=== PATIENT | male | born 1940 | race Caucasian/White ===

== ENCOUNTER 2018-05-22 14:04 | Inpatient (IN) | payer MEDICARE, OTHER ==
[~2018-05-22] VITALS: Ht 188 cm; Wt 147.0 kg
[2018-05-22] MEDS ORDERED: acetaminophen 325mg tablet PO ONE (14:10)
[2018-05-22] MEDS ORDERED: ondansetron/PF 4mg/2ml inj IV ONE (15:00)
[2018-05-22] MEDS ORDERED: normal saline 1000ml 1,000 ML IV ONE (15:00)
[2018-05-22] MEDS ORDERED: morphine 4 MG/ML inj SYRINge IV ONE (15:00)
[2018-05-22 15:37] LABS: BASOPHILS # (AUTO) 0.1 X10'3 (0-0.2); BASOPHILS % (AUTO) 0.6 % (0-1); EOSINOPHILS # (AUTO) 0.1 X10'3 (0-0.9); EOSINOPHILS % (AUTO) 1.4 % (0-6); HEMATOCRIT 41.5 % (42.0-52.0); LYMPHOCYTES # (AUTO) 0.9 X10'3 (1.1-4.8); LYMPHOCYTES % (AUTO) 10.1 % (21-51); MEAN CORPUSCULAR HEMOGLOBIN 30.6 PG (27.0-31.0); MEAN CORPUSCULAR HGB CONC 33.7 % (33.0-36.5); MEAN CORPUSCULAR VOLUME 90.9 FL (78-98); MEAN PLATELET VOLUME 8.2 FL (7.4-10.4); MONOCYTES # (AUTO) 0.3 X10'3 (0-0.9); MONOCYTES % (AUTO) 3.5 % (2-12); NEUTROPHILS % (AUTO) 84.4 % (42-75); PLATELET COUNT 165 X10'3 (140-440); RED BLOOD COUNT 4.57 X10'6 (4.70-6.10); RED CELL DISTRIBUTION WIDTH 13.8 % (11.5-14.5); WHITE BLOOD COUNT 9.4 X10'3 (4.5-11.0)
[2018-05-22 15:41] LABS: INR 1.1 INR; PARTIAL THROMBOPLASTIN TIME 24 SECONDS (22-32)
[2018-05-22 15:46] LABS: ALANINE AMINOTRANSFERASE 26 U/L (12-78); ALBUMIN 3.7 G/DL (3.4-5.0); ALBUMIN/GLOBULIN RATIO 0.9 (1.1-1.5); ALKALINE PHOSPHATASE 98 IU/L (46-116); ANION GAP 9 (8-16); BILIRUBIN,TOTAL 0.8 MG/DL (0.1-1.0); BLOOD UREA NITROGEN 19 MG/DL (7-18); BUN/CREATININE RATIO 10.9 (5.4-32.0); CALCIUM 9.6 MG/DL (8.5-10.1); CHLORIDE 104 MMOL/L (99-107); CREATININE 1.75 MG/DL (0.60-1.10); GLUCOSE 74 MG/DL (70-104); SODIUM 145 MMOL/L (135-145); TOTAL CARBON DIOXIDE 32.3 MMOL/L (24-32); TOTAL PROTEIN 7.6 G/DL (6.4-8.2); eGFR 38 ML/MIN
[2018-05-22 15:48] LABS: ASPARTATE AMINO TRANSFERASE 31 U/L (10-37); POTASSIUM 4.2 MMOL/L (3.5-5.1)
[2018-05-22] MEDS ORDERED: morphine 4 MG/ML inj SYRINge IM ONE (16:20)
[2018-05-22] MEDS ORDERED: HYDR28CR14 TOP (17:05)
[2018-05-22] MEDS ORDERED: KEN0.1O TP (17:05)
[2018-05-22] MEDS ORDERED: OXCA150T53 PO (17:05)
[2018-05-22] MEDS ORDERED: OXCA300T52 PO (17:05)
[2018-05-22] MEDS ORDERED: INSU100I29 SQ (17:05)
[2018-05-22] MEDS ORDERED: DILT120C62 PO (17:05)
[2018-05-22] MEDS ORDERED: CARV3.122 PO (17:05)
[2018-05-22] MEDS ORDERED: APIX5TAB3 PO (17:05)
[2018-05-22] MEDS ORDERED: LEVO112T5 PO (17:05)
[2018-05-22] MEDS ORDERED: POTA20TA19 PO (17:05)
[2018-05-22] MEDS ORDERED: OMEG1CAP46 PO (17:05)
[2018-05-22] MEDS ORDERED: FURO80TA87 PO (17:05)
[2018-05-22] MEDS ORDERED: OMEP20TA5 PO (17:05)
[2018-05-22] MEDS ORDERED: INSU100C4 SQ (17:05)
[2018-05-22] MEDS ORDERED: LIRA0.6P2 SUBCUT (17:05)
[2018-05-22] MEDS ORDERED: ATOR80TA PO (17:05)
[2018-05-22] MEDS ORDERED: normal saline 1000ml 1,000 ML IV SCH (17:56)
[2018-05-22] MEDS ORDERED: insulin Lispro (HumaLOG) vial - multi-dose SQ SCH (18:00)
[2018-05-22] MEDS ORDERED: potassium Cl 40MEQ/NS 500ml 500 ML IV PRN ×2 (18:00)
[2018-05-22] MEDS ORDERED: dextrose 50%-water 50ml dispensing syringe IV PRN ×2 (18:00)
[2018-05-22] MEDS ORDERED: MESSAGE TO PHARMACY PO ONE (18:00)
[2018-05-22] MEDS ORDERED: magnesium 1gm/100ml D5W IVPB 100 ML IV PRN (18:00)
[2018-05-22] MEDS ORDERED: dextrose ORAL solution 15 GM/59 ML bottle PO PRN ×2 (18:00)
[2018-05-22] MEDS ORDERED: bisacodyl 10mg suppository rectal RC PRN (18:00)
[2018-05-22] MEDS ORDERED: ipratropium/albuterol 3ml nebule NEB PRN (18:00)
[2018-05-22] MEDS ORDERED: mag hydrox/Alum hydrox/simeth 30ml oral suspension PO PRN (18:00)
[2018-05-22] MEDS ORDERED: acetaminophen 325mg tablet PO PRN (18:00)
[2018-05-22] MEDS ORDERED: morphine 2 MG/ML inj. syringe IV PRN (18:00)
[2018-05-22] MEDS ORDERED: magnesium 4gm in 100ml NS 100 ML IV PRN (18:00)
[2018-05-22] MEDS ORDERED: glucagon, human recombinant 1mg kit SUBCUT PRN (18:00)
[2018-05-22] MEDS ORDERED: ondansetron/PF 4mg/2ml inj IV PRN (18:00)
[2018-05-22] MEDS ORDERED: potassium Cl 20 mEq SR tablet PO PRN ×2 (18:00)
[2018-05-22 18:48] LABS: HEMOGLOBIN A1C 5.5 % (4.5-6.2)
[2018-05-22 19:37] LABS: CLARITY,URINE CLEAR (Clear); COLOR,URINE YELLOW (Yellow); GLUCOSE, URINE NEGATIVE (Neg); KETONES,URINE NEGATIVE (Neg); LEUKOCYTE ESTERASE ,URINE NEGATIVE (Neg); NITRITES, URINE NEGATIVE (Neg); OCCULT BLOOD,URINE NEGATIVE (Neg); PH,URINE 6.5 (4.8-8.0); PROTEIN,URINE NEGATIVE (Neg); UA COLLECTION TYPE FOLEY CATH; UROBILINOGEN,URINE 0.2 E.U/dL (0.2-1.0)
[2018-05-22 20:00] VITALS: BP 121/61
[2018-05-22] MEDS ORDERED: oxcarbazepine 150mg tablet PO SCH (20:00)
[2018-05-22] MEDS: OMEGA-3/DHA/EPA/FISH OIL 1 EACH CAPSULE.DR PO SCH (20:00)
[2018-05-22] MEDS: insulin glargine (Lantus) pen - multi-dose SQ SCH (21:00)
[2018-05-22] MEDS: oxcarbazepine 150mg tablet PO SCH (21:00)
[2018-05-22] MEDS: carVEDilol 3.125mg tablet PO SCH (22:28)
[2018-05-22] MEDS: atorvastatin 20mg tablet PO SCH (22:29)
[2018-05-22] MEDS: potassium Cl 20 mEq SR tablet PO SCH (22:29)
[2018-05-22] MEDS: morphine 2 MG/ML inj. syringe IV PRN (22:31)
[2018-05-22 23:00] VITALS: BP 147/67
[2018-05-23 03:00] VITALS: BP 128/74
[2018-05-23] MEDS: morphine 2 MG/ML inj. syringe IV PRN ×3 (04:29→16:14)
[2018-05-23 05:28] LABS: BASOPHILS # (AUTO) 0.1 X10'3 (0-0.2); BASOPHILS % (AUTO) 0.5 % (0-1); EOSINOPHILS # (AUTO) 0.2 X10'3 (0-0.9); EOSINOPHILS % (AUTO) 1.5 % (0-6); HEMOGLOBIN 12.7 g/dl (14.0-17.9); LYMPHOCYTES # (AUTO) 0.9 X10'3 (1.1-4.8); LYMPHOCYTES % (AUTO) 8.1 % (21-51); MEAN CORPUSCULAR HEMOGLOBIN 31.5 PG (27.0-31.0); MEAN CORPUSCULAR HGB CONC 34.4 % (33.0-36.5); MEAN CORPUSCULAR VOLUME 91.5 FL (78-98); MEAN PLATELET VOLUME 8.5 FL (7.4-10.4); MONOCYTES # (AUTO) 0.4 X10'3 (0-0.9); MONOCYTES % (AUTO) 3.9 % (2-12); NEUTROPHILS # (AUTO) 8.9 X10'3 (1.8-7.7); PLATELET COUNT 146 X10'3 (140-440); RED BLOOD COUNT 4.04 X10'6 (4.70-6.10); RED CELL DISTRIBUTION WIDTH 13.4 % (11.5-14.5); WHITE BLOOD COUNT 10.6 X10'3 (4.5-11.0)
[2018-05-23 05:51] LABS: ALANINE AMINOTRANSFERASE 24 U/L (12-78); ALBUMIN 3.3 G/DL (3.4-5.0); ALKALINE PHOSPHATASE 86 IU/L (46-116); ANION GAP 9 (8-16); ASPARTATE AMINO TRANSFERASE 17 U/L (10-37); BILIRUBIN,TOTAL 1.2 MG/DL (0.1-1.0); BLOOD UREA NITROGEN 22 MG/DL (7-18); BUN/CREATININE RATIO 11.8 (5.4-32.0); CALCIUM 9.2 MG/DL (8.5-10.1); CHLORIDE 106 MMOL/L (99-107); CHOL/HDL RATIO 2.3 (0.00-4.99); CHOLESTEROL 118 MG/DL (0-200); CREATININE 1.86 MG/DL (0.60-1.10); GLUCOSE 128 MG/DL (70-104); HDL CHOLESTEROL 52 MG/DL (35-60); LDL CHOLESTEROL 63 MG/DL (50-100); MAGNESIUM 2.1 MG/DL (1.5-2.4); POTASSIUM 4.3 MMOL/L (3.5-5.1); SODIUM 146 MMOL/L (135-145); TOTAL CARBON DIOXIDE 31.5 MMOL/L (24-32); TOTAL PROTEIN 6.6 G/DL (6.4-8.2); TRIGLYCERIDES 61 MG/DL (20-135); eGFR 35 ML/MIN
[2018-05-23 06:00] VITALS: BP 114/62
[2018-05-23] MEDS ORDERED: non-formulary drug (Diltiazem HCl (Diltiazem 24Hr Cd) 1 CAP) PO SCH (08:00)
[2018-05-23] MEDS: K and/or MAG REPLACEMENT MC SCH (08:00)
[2018-05-23] MEDS: furosemide 10 MG/1 ML 10ml inj IV SCH (08:48)
[2018-05-23] MEDS: levoTHYROXINE 112mcg tablet PO SCH (08:48)
[2018-05-23] MEDS: OMEGA-3/DHA/EPA/FISH OIL 1 EACH CAPSULE.DR PO SCH ×2 (08:48→20:19)
[2018-05-23] MEDS: potassium Cl 20 mEq SR tablet PO SCH ×2 (08:48→20:19)
[2018-05-23] MEDS: diltiazem CD 120mg capsule (once-daily) PO SCH (08:49)
[2018-05-23] MEDS: pantoprazole 40mg Tablet.DR PO SCH (08:49)
[2018-05-23] MEDS: carVEDilol 3.125mg tablet PO SCH ×2 (08:49→20:19)
[2018-05-23] MEDS: oxcarbazepine 150mg tablet PO SCH ×2 (08:56→20:19)
[2018-05-23] MEDS: normal saline 1000ml 1,000 ML IV SCH ×2 (10:22→13:55)
[2018-05-23 11:00] VITALS: BP 104/56
[2018-05-23] MEDS: heparin, porcine 5000 units/ml vial SQ SCH (12:02)
[2018-05-23] MEDS ORDERED: HYDROcodone/acetaminophen 5mg/325mg tablet PO PRN (12:35)
[2018-05-23] MEDS: HYDROcodone/acetaminophen 10/325mg tab PO PRN ×2 (13:02→19:00)
[2018-05-23 15:00] VITALS: BP 119/53
[2018-05-23 19:00] VITALS: BP 110/56
[2018-05-23] MEDS: atorvastatin 20mg tablet PO SCH (20:19)
[2018-05-23] MEDS: insulin glargine (Lantus) pen - multi-dose SQ SCH (21:00)
[2018-05-23 23:00] VITALS: BP 134/61
[2018-05-23] MEDS: oxyCODONE/APAP 10/325mg tablet PO PRN (23:46)
[2018-05-24 05:00] VITALS: BP 133/71
[2018-05-24 05:50] LABS: BASOPHILS # (AUTO) 0.1 X10'3 (0-0.2); BASOPHILS % (AUTO) 0.6 % (0-1); EOSINOPHILS # (AUTO) 0.4 X10'3 (0-0.9); EOSINOPHILS % (AUTO) 4.6 % (0-6); HEMATOCRIT 32.5 % (42.0-52.0); HEMOGLOBIN 11.2 g/dl (14.0-17.9); LYMPHOCYTES # (AUTO) 0.9 X10'3 (1.1-4.8); LYMPHOCYTES % (AUTO) 10.8 % (21-51); MEAN CORPUSCULAR HEMOGLOBIN 31.7 PG (27.0-31.0); MEAN CORPUSCULAR HGB CONC 34.5 % (33.0-36.5); MEAN CORPUSCULAR VOLUME 91.9 FL (78-98); MEAN PLATELET VOLUME 8.2 FL (7.4-10.4); MONOCYTES # (AUTO) 0.5 X10'3 (0-0.9); MONOCYTES % (AUTO) 5.4 % (2-12); NEUTROPHILS # (AUTO) 6.5 X10'3 (1.8-7.7); NEUTROPHILS % (AUTO) 78.6 % (42-75); PLATELET COUNT 108 X10'3 (140-440); RED BLOOD COUNT 3.53 X10'6 (4.70-6.10); RED CELL DISTRIBUTION WIDTH 13.6 % (11.5-14.5); WHITE BLOOD COUNT 8.4 X10'3 (4.5-11.0)
[2018-05-24 06:12] LABS: ALANINE AMINOTRANSFERASE 23 U/L (12-78); ALBUMIN 2.8 G/DL (3.4-5.0); ALBUMIN/GLOBULIN RATIO 0.9 (1.1-1.5); ALKALINE PHOSPHATASE 73 IU/L (46-116); ANION GAP 9 (8-16); ASPARTATE AMINO TRANSFERASE 42 U/L (10-37); BILIRUBIN,TOTAL 0.9 MG/DL (0.1-1.0); BLOOD UREA NITROGEN 30 MG/DL (7-18); BUN/CREATININE RATIO 13.7 (5.4-32.0); CALCIUM 8.9 MG/DL (8.5-10.1); CHLORIDE 106 MMOL/L (99-107); CREATININE 2.19 MG/DL (0.60-1.10); GLUCOSE 132 MG/DL (70-104); MAGNESIUM 2.1 MG/DL (1.5-2.4); POTASSIUM 4.2 MMOL/L (3.5-5.1); SODIUM 142 MMOL/L (135-145); TOTAL CARBON DIOXIDE 27.1 MMOL/L (24-32); eGFR 29 ML/MIN
[2018-05-24 07:36] VITALS: BP 135/73
[2018-05-24] MEDS: pantoprazole 40mg Tablet.DR PO SCH (07:38)
[2018-05-24] MEDS: furosemide 10 MG/1 ML 10ml inj IV SCH (07:38)
[2018-05-24] MEDS: potassium Cl 20 mEq SR tablet PO SCH ×2 (07:39→20:57)
[2018-05-24] MEDS: carVEDilol 3.125mg tablet PO SCH ×2 (07:39→20:56)
[2018-05-24] MEDS: oxcarbazepine 150mg tablet PO SCH ×2 (07:39→20:58)
[2018-05-24] MEDS: levoTHYROXINE 112mcg tablet PO SCH (07:39)
[2018-05-24] MEDS: OMEGA-3/DHA/EPA/FISH OIL 1 EACH CAPSULE.DR PO SCH ×2 (07:39→20:57)
[2018-05-24] MEDS: oxyCODONE/APAP 10/325mg tablet PO PRN ×3 (07:39→17:22)
[2018-05-24] MEDS: diltiazem CD 120mg capsule (once-daily) PO SCH (07:39)
[2018-05-24] MEDS: K and/or MAG REPLACEMENT MC SCH (07:41)
[2018-05-24] MEDS ORDERED: clindamycin 600mg/D5W 50ml 50 ML IV ONE (09:00)
[2018-05-24 11:00] VITALS: BP 131/62
[2018-05-24] MEDS: heparin, porcine 5000 units/ml vial SQ SCH (11:35)
[2018-05-24] MEDS: normal saline 1000ml 1,000 ML IV SCH (17:22)
[2018-05-24 18:00] VITALS: BP 108/71
[2018-05-24] MEDS: lactobacillus rhamnosus 10,000 MMU CELLS/CAPSULE PO SCH (20:57)
[2018-05-24] MEDS: atorvastatin 20mg tablet PO SCH (20:57)
[2018-05-24] MEDS: insulin glargine (Lantus) pen - multi-dose SQ SCH (21:00)
[2018-05-24 22:00] VITALS: BP 110/80
[2018-05-25] VITALS (21 sets, daily range): BP systolic 70–141; BP diastolic 41–88
[2018-05-25] MEDS: normal saline 1000ml 1,000 ML IV SCH ×2 (01:30→10:31)
[2018-05-25] MEDS: oxyCODONE/APAP 10/325mg tablet PO PRN ×3 (04:37→22:40)
[2018-05-25 05:29] LABS: BASOPHILS # (AUTO) 0.1 X10'3 (0-0.2); BASOPHILS % (AUTO) 0.7 % (0-1); EOSINOPHILS # (AUTO) 0.4 X10'3 (0-0.9); EOSINOPHILS % (AUTO) 5.6 % (0-6); HEMATOCRIT 30.8 % (42.0-52.0); HEMOGLOBIN 10.6 g/dl (14.0-17.9); LYMPHOCYTES # (AUTO) 0.8 X10'3 (1.1-4.8); LYMPHOCYTES % (AUTO) 10.2 % (21-51); MEAN CORPUSCULAR HEMOGLOBIN 31.8 PG (27.0-31.0); MEAN CORPUSCULAR HGB CONC 34.3 % (33.0-36.5); MEAN CORPUSCULAR VOLUME 92.6 FL (78-98); MEAN PLATELET VOLUME 8.7 FL (7.4-10.4); MONOCYTES # (AUTO) 0.5 X10'3 (0-0.9); MONOCYTES % (AUTO) 6.6 % (2-12); NEUTROPHILS # (AUTO) 6.1 X10'3 (1.8-7.7); NEUTROPHILS % (AUTO) 76.9 % (42-75); PLATELET COUNT 106 X10'3 (140-440); RED BLOOD COUNT 3.32 X10'6 (4.70-6.10); RED CELL DISTRIBUTION WIDTH 13.9 % (11.5-14.5); WHITE BLOOD COUNT 7.9 X10'3 (4.5-11.0)
[2018-05-25 05:33] LABS: ALANINE AMINOTRANSFERASE 24 U/L (12-78); ALBUMIN 2.6 G/DL (3.4-5.0); ALBUMIN/GLOBULIN RATIO 0.8 (1.1-1.5); ALKALINE PHOSPHATASE 72 IU/L (46-116); ANION GAP 9 (8-16); ASPARTATE AMINO TRANSFERASE 42 U/L (10-37); BILIRUBIN,TOTAL 0.9 MG/DL (0.1-1.0); BLOOD UREA NITROGEN 33 MG/DL (7-18); BUN/CREATININE RATIO 15.6 (5.4-32.0); CALCIUM 8.5 MG/DL (8.5-10.1); CHLORIDE 107 MMOL/L (99-107); CREATININE 2.11 MG/DL (0.60-1.10); GLUCOSE 124 MG/DL (70-104); MAGNESIUM 2.1 MG/DL (1.5-2.4); POTASSIUM 4.3 MMOL/L (3.5-5.1); SODIUM 143 MMOL/L (135-145); TOTAL CARBON DIOXIDE 27.2 MMOL/L (24-32); TOTAL PROTEIN 5.8 G/DL (6.4-8.2); eGFR 31 ML/MIN
[2018-05-25] MEDS: K and/or MAG REPLACEMENT MC SCH (07:11)
[2018-05-25] MEDS: lactobacillus rhamnosus 10,000 MMU CELLS/CAPSULE PO SCH ×2 (08:17→21:25)
[2018-05-25] MEDS: pantoprazole 40mg Tablet.DR PO SCH (08:17)
[2018-05-25] MEDS: diltiazem CD 120mg capsule (once-daily) PO SCH (08:18)
[2018-05-25] MEDS: potassium Cl 20 mEq SR tablet PO SCH ×2 (08:18→21:25)
[2018-05-25] MEDS: levoTHYROXINE 112mcg tablet PO SCH (08:19)
[2018-05-25] MEDS: oxcarbazepine 150mg tablet PO SCH ×2 (08:19→21:26)
[2018-05-25] MEDS: carVEDilol 3.125mg tablet PO SCH ×2 (08:19→21:25)
[2018-05-25] MEDS: OMEGA-3/DHA/EPA/FISH OIL 1 EACH CAPSULE.DR PO SCH ×2 (08:20→21:25)
[2018-05-25] MEDS: heparin, porcine 5000 units/ml vial SQ SCH (10:30)
[2018-05-25] MEDS ORDERED: clindamycin 600mg/D5W 50ml 50 ML IV ONE (15:00)
[2018-05-25] MEDS ORDERED: tetracaine 1% (10mg/ml) pres. free inj. ONE (15:24)
[2018-05-25] MEDS ORDERED: fentaNYL/PF 50MCG/1 ML 2ML syringe ONE (15:26)
[2018-05-25] MEDS ORDERED: MIDAZolam 5mg/5ml vial ONE (15:26)
[2018-05-25] MEDS ORDERED: BUPIVAcaine/dex-water/PF 7.5 mg/ml 2ml ampul ONE (15:28)
[2018-05-25] MEDS ORDERED: phenylephrine 10mg/ml inj. ONE (15:30)
[2018-05-25] MEDS ORDERED: ringers solution, lacted 1,000 ML IV SCH (16:08)
[2018-05-25] MEDS ORDERED: morphine 4 MG/ML inj SYRINge IV PRN ×2 (16:10)
[2018-05-25] MEDS ORDERED: ondansetron/PF 4mg/2ml inj IV PRN (16:10)
[2018-05-25] MEDS ORDERED: labetalol 20mg/4ml (5mg/ml) syringe IV PRN (16:10)
[2018-05-25] MEDS ORDERED: enalaprilat dihydrate 2.5mg/2ml vial IV PRN (16:10)
[2018-05-25] MEDS ORDERED: fentaNYL/PF 50MCG/1 ML 2ML syringe IV PRN ×2 (16:10)
[2018-05-25] MEDS: insulin glargine (Lantus) pen - multi-dose SQ SCH (21:00)
[2018-05-25] MEDS: atorvastatin 20mg tablet PO SCH (21:26)
[2018-05-26 02:00] VITALS: BP 92/43
[2018-05-26] MEDS: normal saline 1000ml 1,000 ML IV SCH ×2 (02:46→16:49)
[2018-05-26] MEDS: clindamycin 600mg/D5W 50ml 50 ML IV SCH ×3 (02:47→14:45)
[2018-05-26] MEDS: oxyCODONE/APAP 10/325mg tablet PO PRN ×3 (05:19→15:57)
[2018-05-26 06:00] VITALS: BP 110/59
[2018-05-26 06:30] LABS: ALANINE AMINOTRANSFERASE 26 U/L (12-78); ALBUMIN 2.5 G/DL (3.4-5.0); ALBUMIN/GLOBULIN RATIO 0.8 (1.1-1.5); ALKALINE PHOSPHATASE 66 IU/L (46-116); ANION GAP 9 (8-16); ASPARTATE AMINO TRANSFERASE 40 U/L (10-37); BLOOD UREA NITROGEN 36 MG/DL (7-18); CHLORIDE 109 MMOL/L (99-107); CREATININE 2.25 MG/DL (0.60-1.10); GLUCOSE 135 MG/DL (70-104); MAGNESIUM 2.2 MG/DL (1.5-2.4); POTASSIUM 4.9 MMOL/L (3.5-5.1); SODIUM 145 MMOL/L (135-145); TOTAL CARBON DIOXIDE 26.8 MMOL/L (24-32); TOTAL PROTEIN 5.8 G/DL (6.4-8.2); eGFR 28 ML/MIN
[2018-05-26 06:47] LABS: BASOPHILS % (AUTO) 0.4 % (0-1); EOSINOPHILS # (AUTO) 0.4 X10'3 (0-0.9); EOSINOPHILS % (AUTO) 4.6 % (0-6); HEMATOCRIT 30.4 % (42.0-52.0); HEMOGLOBIN 10.4 g/dl (14.0-17.9); LYMPHOCYTES # (AUTO) 0.9 X10'3 (1.1-4.8); LYMPHOCYTES % (AUTO) 10.3 % (21-51); MEAN CORPUSCULAR HEMOGLOBIN 31.1 PG (27.0-31.0); MEAN CORPUSCULAR HGB CONC 34.1 % (33.0-36.5); MEAN CORPUSCULAR VOLUME 91.1 FL (78-98); MEAN PLATELET VOLUME 8.7 FL (7.4-10.4); MONOCYTES # (AUTO) 0.6 X10'3 (0-0.9); MONOCYTES % (AUTO) 6.8 % (2-12); NEUTROPHILS # (AUTO) 6.5 X10'3 (1.8-7.7); NEUTROPHILS % (AUTO) 77.9 % (42-75); PLATELET COUNT 111 X10'3 (140-440); RED BLOOD COUNT 3.33 X10'6 (4.70-6.10); RED CELL DISTRIBUTION WIDTH 13.8 % (11.5-14.5); WHITE BLOOD COUNT 8.4 X10'3 (4.5-11.0)
[2018-05-26] MEDS: K and/or MAG REPLACEMENT MC SCH (07:39)
[2018-05-26 08:00] VITALS: BP 107/80
[2018-05-26] MEDS: diltiazem CD 120mg capsule (once-daily) PO SCH (08:00)
[2018-05-26] MEDS: carVEDilol 3.125mg tablet PO SCH ×2 (08:00→21:16)
[2018-05-26] MEDS: OMEGA-3/DHA/EPA/FISH OIL 1 EACH CAPSULE.DR PO SCH ×2 (08:05→21:16)
[2018-05-26] MEDS: pantoprazole 40mg Tablet.DR PO SCH (08:05)
[2018-05-26] MEDS: lactobacillus rhamnosus 10,000 MMU CELLS/CAPSULE PO SCH ×2 (08:06→21:16)
[2018-05-26] MEDS: potassium Cl 20 mEq SR tablet PO SCH ×2 (08:06→21:17)
[2018-05-26] MEDS: levoTHYROXINE 112mcg tablet PO SCH (08:07)
[2018-05-26] MEDS: oxcarbazepine 150mg tablet PO SCH ×2 (08:08→21:16)
[2018-05-26 09:50] VITALS: BP 118/52
[2018-05-26] MEDS: heparin, porcine 5000 units/ml vial SQ SCH (11:10)
[2018-05-26 18:00] VITALS: BP 110/66
[2018-05-26] MEDS: insulin glargine (Lantus) pen - multi-dose SQ SCH (21:00)
[2018-05-26] MEDS: atorvastatin 20mg tablet PO SCH (21:17)
[2018-05-26 22:00] VITALS: BP 133/71
[2018-05-26] MEDS ORDERED: normal saline 250ml IV soln 250 ML IV ONE (22:05)
[2018-05-26] MEDS: apixaban 5mg tablet PO SCH (23:44)
[2018-05-26 23:45] LABS: BASOPHILS # (AUTO) 0.1 X10'3 (0-0.2); BASOPHILS % (AUTO) 1.4 % (0-1); EOSINOPHILS # (AUTO) 0.6 X10'3 (0-0.9); EOSINOPHILS % (AUTO) 6.9 % (0-6); HEMATOCRIT 29.2 % (42.0-52.0); HEMOGLOBIN 10.1 g/dl (14.0-17.9); LYMPHOCYTES # (AUTO) 0.7 X10'3 (1.1-4.8); LYMPHOCYTES % (AUTO) 8.7 % (21-51); MEAN CORPUSCULAR HEMOGLOBIN 31.9 PG (27.0-31.0); MEAN CORPUSCULAR HGB CONC 34.4 % (33.0-36.5); MEAN CORPUSCULAR VOLUME 92.6 FL (78-98); MEAN PLATELET VOLUME 8.4 FL (7.4-10.4); MONOCYTES # (AUTO) 0.6 X10'3 (0-0.9); MONOCYTES % (AUTO) 7.5 % (2-12); NEUTROPHILS # (AUTO) 6.1 X10'3 (1.8-7.7); NEUTROPHILS % (AUTO) 75.5 % (42-75); PLATELET COUNT 114 X10'3 (140-440); RED BLOOD COUNT 3.16 X10'6 (4.70-6.10); RED CELL DISTRIBUTION WIDTH 13.6 % (11.5-14.5); WHITE BLOOD COUNT 8.1 X10'3 (4.5-11.0)
[2018-05-26 23:45] LABS: CLARITY,URINE CLEAR (Clear); COLOR,URINE YELLOW (Yellow); GLUCOSE, URINE NEGATIVE (Neg); KETONES,URINE NEGATIVE (Neg); LEUKOCYTE ESTERASE ,URINE NEGATIVE (Neg); NITRITES, URINE NEGATIVE (Neg); OCCULT BLOOD,URINE MODERATE (Neg); PROTEIN,URINE NEGATIVE (Neg)
[2018-05-26 23:50] LABS: BACTERIA,URINE FEW /HPF (Neg); SQUAMOUS EPITHELIAL CELL,UR FEW /LPF (FEW); UA COLLECTION TYPE NON-SPECIFIED; WBC,URINE NONE SEEN /HPF (0-4)
[2018-05-27] VITALS (7 sets, daily range): BP systolic 103–132; BP diastolic 54–80
[2018-05-27 01:44] LABS: ALANINE AMINOTRANSFERASE 27 U/L (12-78); ALBUMIN 2.5 G/DL (3.4-5.0); ALBUMIN/GLOBULIN RATIO 0.7 (1.1-1.5); ALKALINE PHOSPHATASE 66 IU/L (46-116); ANION GAP 6 (8-16); ASPARTATE AMINO TRANSFERASE 41 U/L (10-37); BILIRUBIN,TOTAL 0.9 MG/DL (0.1-1.0); BLOOD UREA NITROGEN 44 MG/DL (7-18); BUN/CREATININE RATIO 16.9 (5.4-32.0); CALCIUM 9.1 MG/DL (8.5-10.1); CHLORIDE 111 MMOL/L (99-107); CREATININE 2.61 MG/DL (0.60-1.10); GLUCOSE 142 MG/DL (70-104); LIPASE 223 U/L (73-393); PHOSPHORUS 3.6 MG/DL (2.3-4.5); POTASSIUM 5.1 MMOL/L (3.5-5.1); SODIUM 145 MMOL/L (135-145); TOTAL CARBON DIOXIDE 27.8 MMOL/L (24-32); TROPONIN I < 0.04 NG/ML (0.0-0.05); eGFR 24 ML/MIN
[2018-05-27] MEDS: oxyCODONE/APAP 10/325mg tablet PO PRN ×2 (03:58→11:25)
[2018-05-27 05:21] LABS: ABG BASE EXCESS -3.7 mmol/L (-2.0-3.0); ABG HCO3 21.9 mmol/L (22.0-26.0); ABG OXYGEN SATURATION 95.3 % (95-98); ABG PCO2 (T) 42.1 mmHg (35.0-48.0); ABG PH (T) 7.334 (7.350-7.450); ABG PO2 (T) 85.4 mmHg (83-108); ALLEN'S TEST Positive; FCOHb 0.3 % (0.5-1.5); FLOW 8 L/min; FMetHb 0.2 % (0.3-1.12); FO2Hb 94.8 % (94-100); RESPIRATORY RATE 0 b/min; RESPIRATORY RATE (OBSERVED) 20 b/min
[2018-05-27] MEDS: normal saline 1000ml 1,000 ML IV SCH (06:50)
[2018-05-27 06:54] LABS: BASOPHILS % (AUTO) 0.5 % (0-1); EOSINOPHILS # (AUTO) 0.5 X10'3 (0-0.9); EOSINOPHILS % (AUTO) 6.2 % (0-6); HEMATOCRIT 26.9 % (42.0-52.0); HEMOGLOBIN 9.2 g/dl (14.0-17.9); LYMPHOCYTES # (AUTO) 0.8 X10'3 (1.1-4.8); MEAN CORPUSCULAR HEMOGLOBIN 31.5 PG (27.0-31.0); MEAN CORPUSCULAR HGB CONC 34.3 % (33.0-36.5); MEAN CORPUSCULAR VOLUME 91.8 FL (78-98); MEAN PLATELET VOLUME 8.6 FL (7.4-10.4); MONOCYTES # (AUTO) 0.5 X10'3 (0-0.9); MONOCYTES % (AUTO) 6.7 % (2-12); NEUTROPHILS # (AUTO) 6.1 X10'3 (1.8-7.7); NEUTROPHILS % (AUTO) 76.6 % (42-75); PLATELET COUNT 106 X10'3 (140-440); RED BLOOD COUNT 2.93 X10'6 (4.70-6.10); RED CELL DISTRIBUTION WIDTH 13.4 % (11.5-14.5); WHITE BLOOD COUNT 7.9 X10'3 (4.5-11.0)
[2018-05-27 07:15] LABS: ALANINE AMINOTRANSFERASE 27 U/L (12-78); ALBUMIN 2.4 G/DL (3.4-5.0); ALBUMIN/GLOBULIN RATIO 0.7 (1.1-1.5); ALKALINE PHOSPHATASE 65 IU/L (46-116); ANION GAP 10 (8-16); ASPARTATE AMINO TRANSFERASE 42 U/L (10-37); BILIRUBIN,TOTAL 0.9 MG/DL (0.1-1.0); BLOOD UREA NITROGEN 44 MG/DL (7-18); BUN/CREATININE RATIO 16.2 (5.4-32.0); CALCIUM 8.9 MG/DL (8.5-10.1); CHLORIDE 111 MMOL/L (99-107); CREATININE 2.72 MG/DL (0.60-1.10); GLUCOSE 151 MG/DL (70-104); MAGNESIUM 2.2 MG/DL (1.5-2.4); SODIUM 146 MMOL/L (135-145); TOTAL CARBON DIOXIDE 24.7 MMOL/L (24-32); TOTAL PROTEIN 5.9 G/DL (6.4-8.2); eGFR 23 ML/MIN
[2018-05-27] MEDS: K and/or MAG REPLACEMENT MC SCH (07:31)
[2018-05-27] MEDS: lactobacillus rhamnosus 10,000 MMU CELLS/CAPSULE PO SCH ×2 (07:44→19:56)
[2018-05-27] MEDS: OMEGA-3/DHA/EPA/FISH OIL 1 EACH CAPSULE.DR PO SCH ×2 (07:44→20:32)
[2018-05-27] MEDS: levoTHYROXINE 112mcg tablet PO SCH (07:44)
[2018-05-27] MEDS: pantoprazole 40mg Tablet.DR PO SCH (07:44)
[2018-05-27] MEDS: apixaban 5mg tablet PO SCH (07:45)
[2018-05-27] MEDS: oxcarbazepine 150mg tablet PO SCH ×2 (07:45→20:32)
[2018-05-27] MEDS: potassium Cl 20 mEq SR tablet PO SCH ×2 (07:45→19:56)
[2018-05-27] MEDS: carVEDilol 3.125mg tablet PO SCH ×2 (07:46→19:56)
[2018-05-27] MEDS: diltiazem CD 120mg capsule (once-daily) PO SCH (07:46)
[2018-05-27] MEDS ORDERED: acetaminophen 325mg tablet PO PRN (12:10)
[2018-05-27] MEDS ORDERED: HYDROcodone/acetaminophen 5mg/325mg tablet PO PRN ×2 (12:10)
[2018-05-27] MEDS ORDERED: furosemide 40mg/4ml inj IV STA (14:02)
[2018-05-27 14:51] LABS: ABG BASE EXCESS -2.9 mmol/L (-2.0-3.0); ABG HCO3 22.6 mmol/L (22.0-26.0); ABG OXYGEN SATURATION 82.5 % (95-98); ABG PCO2 (T) 42.2 mmHg (35.0-48.0); ABG PH (T) 7.346 (7.350-7.450); ABG PO2 (T) 47.9 mmHg (83-108); ALLEN'S TEST Positive; FCOHb 0.4 % (0.5-1.5); FLOW 2 L/min; FMetHb 0.1 % (0.3-1.12); FO2Hb 82.1 % (94-100); TOTAL HEMOGLOBIN 9.1 G/dl (14.0-18.0)
[2018-05-27] MEDS: atorvastatin 20mg tablet PO SCH (20:32)
[2018-05-27] MEDS: insulin glargine (Lantus) pen - multi-dose SQ SCH (20:58)
[2018-05-28 02:15] VITALS: BP 125/58
[2018-05-28 05:22] LABS: BASOPHILS % (AUTO) 0.5 % (0-1); EOSINOPHILS # (AUTO) 0.4 X10'3 (0-0.9); EOSINOPHILS % (AUTO) 5.4 % (0-6); HEMATOCRIT 28.3 % (42.0-52.0); HEMOGLOBIN 9.2 g/dl (14.0-17.9); LYMPHOCYTES # (AUTO) 0.9 X10'3 (1.1-4.8); LYMPHOCYTES % (AUTO) 10.7 % (21-51); MEAN CORPUSCULAR HEMOGLOBIN 30.1 PG (27.0-31.0); MEAN CORPUSCULAR HGB CONC 32.7 % (33.0-36.5); MEAN CORPUSCULAR VOLUME 92.2 FL (78-98); MEAN PLATELET VOLUME 8.3 FL (7.4-10.4); MONOCYTES # (AUTO) 0.7 X10'3 (0-0.9); NEUTROPHILS # (AUTO) 6.2 X10'3 (1.8-7.7); NEUTROPHILS % (AUTO) 75.4 % (42-75); PLATELET COUNT 137 X10'3 (140-440); RED BLOOD COUNT 3.07 X10'6 (4.70-6.10); WHITE BLOOD COUNT 8.3 X10'3 (4.5-11.0)
[2018-05-28 06:00] VITALS: BP 102/75
[2018-05-28 06:26] LABS: ALBUMIN 2.3 G/DL (3.4-5.0); ANION GAP 11 (8-16); BLOOD UREA NITROGEN 51 MG/DL (7-18); BUN/CREATININE RATIO 19.9 (5.4-32.0); CALCIUM 9.5 MG/DL (8.5-10.1); CHLORIDE 112 MMOL/L (99-107); CREATININE 2.56 MG/DL (0.60-1.10); GLUCOSE 164 MG/DL (70-104); MAGNESIUM 2.5 MG/DL (1.5-2.4); POTASSIUM 4.8 MMOL/L (3.5-5.1); SODIUM 147 MMOL/L (135-145); TOTAL CARBON DIOXIDE 24.3 MMOL/L (24-32); eGFR 25 ML/MIN
[2018-05-28] MEDS ORDERED: docusate sod 100mg capsule PO SCH (08:00)
[2018-05-28] MEDS: K and/or MAG REPLACEMENT MC SCH (08:00)
[2018-05-28 08:15] VITALS: BP 144/86
[2018-05-28] MEDS: carVEDilol 3.125mg tablet PO SCH (08:16)
[2018-05-28] MEDS: levoTHYROXINE 112mcg tablet PO SCH (08:16)
[2018-05-28] MEDS: potassium Cl 20 mEq SR tablet PO SCH (08:16)
[2018-05-28] MEDS: diltiazem CD 120mg capsule (once-daily) PO SCH (08:16)
[2018-05-28] MEDS: oxcarbazepine 150mg tablet PO SCH (08:16)
[2018-05-28] MEDS: pantoprazole 40mg Tablet.DR PO SCH (08:16)
[2018-05-28] MEDS: lactobacillus rhamnosus 10,000 MMU CELLS/CAPSULE PO SCH (08:16)
[2018-05-28] MEDS: OMEGA-3/DHA/EPA/FISH OIL 1 EACH CAPSULE.DR PO SCH (08:16)
[2018-05-28] MEDS ORDERED: polyethylene glycol 3350 17gm powd pack PO PRN (09:50)
[2018-05-28] MEDS ORDERED: furosemide 40mg/4ml inj IV ONE (09:50)
[2018-05-28 10:00] VITALS: BP 136/73
[2018-05-28] MEDS ORDERED: apixaban 5mg tablet PO SCH (20:00)
== END 2018-05-28 15:00 | DRG 480 ==
LOC: ER 14:04 → ED HOLD 17:56 → PCU 3S 19:40 → ORTHO 4S 05-23 22:29
PROVIDERS: ADMIT Family Medicine; ATTEND Family Medicine
PROC: 5A09357 Assistance with Respiratory Ventilation, Less than 24 Consecutive Hours, Continuous Positive Airway Pressure (ICD-10-PCS; 2018-05-22)
PROC: 5A09357 Assistance with Respiratory Ventilation, Less than 24 Consecutive Hours, Continuous Positive Airway Pressure (ICD-10-PCS; 2018-05-23)
PROC: 0QS606Z Reposition Right Upper Femur with Intramedullary Internal Fixation Device, Open Approach (ICD-10-PCS; principal; 2018-05-25 16:46)
PROC: 5A09357 Assistance with Respiratory Ventilation, Less than 24 Consecutive Hours, Continuous Positive Airway Pressure (ICD-10-PCS; 2018-05-27)
DX: S72.141A Displaced intertrochanteric fracture of right femur, initial encounter for closed fracture (principal); G93.41 Metabolic encephalopathy; N17.9 Acute kidney failure, unspecified; I13.0 Hypertensive heart and chronic kidney disease with heart failure and stage 1 through stage 4 chronic kidney disease, or unspecified chronic kidney disease; J96.11 Chronic respiratory failure with hypoxia; Z68.41 Body mass index [BMI] 40.0-44.9, adult; J96.12 Chronic respiratory failure with hypercapnia; I50.32 Chronic diastolic (congestive) heart failure; I48.91 Unspecified atrial fibrillation; J44.9 Chronic obstructive pulmonary disease, unspecified; G47.33 Obstructive sleep apnea (adult) (pediatric); R31.9 Hematuria, unspecified; E03.9 Hypothyroidism, unspecified; E11.22 Type 2 diabetes mellitus with diabetic chronic kidney disease; E78.5 Hyperlipidemia, unspecified; E66.01 Morbid (severe) obesity due to excess calories; K21.9 Gastro-esophageal reflux disease without esophagitis; N18.3 Chronic kidney disease, stage 3 (moderate); W01.0XXA Fall on same level from slipping, tripping and stumbling without subsequent striking against object, initial encounter; Z99.81 Dependence on supplemental oxygen; Z98.42 Cataract extraction status, left eye; Z98.41 Cataract extraction status, right eye; Z88.0 Allergy status to penicillin; Z79.899 Other long term (current) drug therapy; Z79.4 Long term (current) use of insulin; Z79.01 Long term (current) use of anticoagulants; Z86.73 Personal history of transient ischemic attack (TIA), and cerebral infarction without residual deficits; Z87.891 Personal history of nicotine dependence; Z82.3 Family history of stroke; Y93.89 Activity, other specified; Y92.89 Other specified places as the place of occurrence of the external cause; Y99.8 Other external cause status
CPT/HCPCS: 36415; 36600; 70450; 71045; 71250; 73502; 73560; 74176; 76000; 80048; 80053; 80061; 81001; 81003; 82803; 82948; 83036; 83690; 83735; 83880; 84100; 84443; 84484; 85018; 85025; 85610; 85730; 87070; 93005; 93306; 94640; 94660; 94760; 96361; 96372; 96374; 96375; 97110; 97161; 97530; 99285; A6449; A7000; J1644; J1815; J1940; J2250; J2270; J2370; J2405; J3010; J3370; J3490; J7030; J7120

== ENCOUNTER 2018-05-31 19:09 | Inpatient (IN) | payer MEDICARE, OTHER ==
[~2018-05-31] VITALS: Ht 170.2 cm; Wt 136.4 kg
[~2018-05-31 19:09] MED LIST: APIX5TAB3 PO; ATOR80TA PO; CARV3.122 PO; DILT120C62 PO; FURO80TA87 PO; HYDR28CR14 TOP; INSU100C4 SQ; INSU100I29 SQ; KEN0.1O TP; LEVO112T5 PO; LIRA0.6P2 SUBCUT; OMEG1CAP46 PO; OMEP20TA5 PO; OXCA150T53 PO; OXCA300T52 PO; POTA20TA19 PO
[2018-05-31 20:21] LABS: ABG BASE EXCESS 1.5 mmol/L (-2.0-3.0); ABG HCO3 25.2 mmol/L (22.0-26.0); ABG OXYGEN SATURATION 94.9 % (95-98); ABG PCO2 (T) 36.4 mmHg (35.0-48.0); ABG PH (T) 7.458 (7.350-7.450); ABG PO2 (T) 74.5 mmHg (83-108); FLOW 2 L/min; FMetHb 0.3 % (0.3-1.12); FO2Hb 93.7 % (94-100); PATIENT TEMPERATURE 37.1; TOTAL HEMOGLOBIN 10.7 G/dl (14.0-18.0)
[2018-05-31 20:29] LABS: BASOPHILS % (AUTO) 0 % (0-1); EOSINOPHILS # (AUTO) 0.1 X10'3 (0-0.9); EOSINOPHILS % (AUTO) 0.6 % (0-6); HEMATOCRIT 29.8 % (42.0-52.0); HEMOGLOBIN 9.8 g/dl (14.0-17.9); LYMPHOCYTES # (AUTO) 0.5 X10'3 (1.1-4.8); LYMPHOCYTES % (AUTO) 3.9 % (21-51); MEAN CORPUSCULAR HEMOGLOBIN 29.8 PG (27.0-31.0); MEAN CORPUSCULAR HGB CONC 32.7 % (33.0-36.5); MEAN PLATELET VOLUME 7.6 FL (7.4-10.4); MONOCYTES # (AUTO) 0.5 X10'3 (0-0.9); MONOCYTES % (AUTO) 3.9 % (2-12); NEUTROPHILS # (AUTO) 12.4 X10'3 (1.8-7.7); NEUTROPHILS % (AUTO) 91.6 % (42-75); PLATELET COUNT 232 X10'3 (140-440); RED BLOOD COUNT 3.27 X10'6 (4.70-6.10); RED CELL DISTRIBUTION WIDTH 14.6 % (11.5-14.5); WHITE BLOOD COUNT 13.6 X10'3 (4.5-11.0)
[2018-05-31 21:12] LABS: ALANINE AMINOTRANSFERASE 44 U/L (12-78); ALBUMIN 2.5 G/DL (3.4-5.0); ALBUMIN/GLOBULIN RATIO 0.7 (1.1-1.5); ALKALINE PHOSPHATASE 85 IU/L (46-116); ANION GAP 7 (8-16); ASPARTATE AMINO TRANSFERASE 34 U/L (10-37); BILIRUBIN,TOTAL 1.2 MG/DL (0.1-1.0); BLOOD UREA NITROGEN 29 MG/DL (7-18); BUN/CREATININE RATIO 16.5 (5.4-32.0); CALCIUM 9.4 MG/DL (8.5-10.1); CHLORIDE 105 MMOL/L (99-107); CREATININE 1.76 MG/DL (0.60-1.10); GLUCOSE 191 MG/DL (70-104); POTASSIUM 4.2 MMOL/L (3.5-5.1); SODIUM 142 MMOL/L (135-145); TOTAL PROTEIN 6.2 G/DL (6.4-8.2); eGFR 38 ML/MIN
[2018-05-31 21:24] LABS: INR 1.1 INR; PARTIAL THROMBOPLASTIN TIME 32 SECONDS (22-32); PROTHROMBIN TIME 10.9 SECONDS (9.0-12.0); TROPONIN I < 0.04 NG/ML (0.0-0.05)
[2018-05-31 22:46] LABS: D-DIMER 2.37 MG/L FEU (0-0.50)
[2018-05-31] MEDS ORDERED: potassium Cl 20 mEq SR tablet PO PRN ×2 (23:30)
[2018-05-31] MEDS ORDERED: magnesium 1gm/100ml D5W IVPB 100 ML IV PRN (23:30)
[2018-05-31] MEDS ORDERED: potassium Cl 40MEQ/NS 500ml 500 ML IV PRN ×2 (23:30)
[2018-05-31] MEDS ORDERED: mag hydrox/Alum hydrox/simeth 30ml oral suspension PO PRN (23:30)
[2018-05-31] MEDS ORDERED: ipratropium/albuterol 3ml nebule NEB PRN (23:30)
[2018-05-31] MEDS ORDERED: ondansetron/PF 4mg/2ml inj IV PRN (23:30)
[2018-05-31] MEDS ORDERED: magnesium 4gm in 100ml NS 100 ML IV PRN (23:30)
[2018-05-31] MEDS ORDERED: magnesium hydroxide 30ml (MOM) UD suspension PO PRN (23:30)
[2018-05-31] MEDS ORDERED: OMEP20CA10 PO (23:40)
[2018-05-31] MEDS ORDERED: INSU200I4 (23:40)
[2018-05-31] MEDS ORDERED: LIRA0.6P2 SUBCUT (23:40)
[2018-05-31] MEDS ORDERED: CARV-50 PO (23:40)
[2018-06-01 00:20] VITALS: BP 150/89
[2018-06-01] MEDS: normal saline 1000ml 1,000 ML IV SCH ×2 (01:42→14:09)
[2018-06-01] MEDS ORDERED: MESSAGE TO PHARMACY PO ONE (02:40)
[2018-06-01] MEDS ORDERED: dextrose 50%-water 50ml dispensing syringe IV PRN ×2 (02:40)
[2018-06-01] MEDS ORDERED: dextrose ORAL solution 15 GM/59 ML bottle PO PRN ×2 (02:40)
[2018-06-01] MEDS ORDERED: glucagon, human recombinant 1mg kit SUBCUT PRN (02:40)
[2018-06-01 04:00] LABS: BASOPHILS % (AUTO) 0.2 % (0-1); EOSINOPHILS # (AUTO) 0.2 X10'3 (0-0.9); EOSINOPHILS % (AUTO) 1.6 % (0-6); HEMATOCRIT 27.7 % (42.0-52.0); HEMOGLOBIN 8.8 g/dl (14.0-17.9); LYMPHOCYTES # (AUTO) 0.5 X10'3 (1.1-4.8); LYMPHOCYTES % (AUTO) 3.7 % (21-51); MEAN CORPUSCULAR HEMOGLOBIN 29.2 PG (27.0-31.0); MEAN CORPUSCULAR HGB CONC 31.8 % (33.0-36.5); MEAN CORPUSCULAR VOLUME 91.9 FL (78-98); MEAN PLATELET VOLUME 7.3 FL (7.4-10.4); MONOCYTES # (AUTO) 0.6 X10'3 (0-0.9); MONOCYTES % (AUTO) 4.1 % (2-12); NEUTROPHILS # (AUTO) 12.8 X10'3 (1.8-7.7); NEUTROPHILS % (AUTO) 90.4 % (42-75); PLATELET COUNT 212 X10'3 (140-440); RED BLOOD COUNT 3.02 X10'6 (4.70-6.10); WHITE BLOOD COUNT 14.2 X10'3 (4.5-11.0)
[2018-06-01 04:14] LABS: ALANINE AMINOTRANSFERASE 40 U/L (12-78); ALBUMIN 2.2 G/DL (3.4-5.0); ALBUMIN/GLOBULIN RATIO 0.7 (1.1-1.5); ALKALINE PHOSPHATASE 79 IU/L (46-116); ANION GAP 9 (8-16); ASPARTATE AMINO TRANSFERASE 28 U/L (10-37); BILIRUBIN,TOTAL 1.1 MG/DL (0.1-1.0); BLOOD UREA NITROGEN 27 MG/DL (7-18); BUN/CREATININE RATIO 15.8 (5.4-32.0); CALCIUM 8.8 MG/DL (8.5-10.1); CHLORIDE 107 MMOL/L (99-107); CREATININE 1.71 MG/DL (0.60-1.10); GLUCOSE 192 MG/DL (70-104); SODIUM 142 MMOL/L (135-145); TOTAL CARBON DIOXIDE 26.3 MMOL/L (24-32); TOTAL PROTEIN 5.5 G/DL (6.4-8.2); eGFR 39 ML/MIN
[2018-06-01 04:23] LABS: CHOL/HDL RATIO 2.6 (0.00-4.99); CHOLESTEROL 86 MG/DL (0-200); HDL CHOLESTEROL 33 MG/DL (35-60); LDL CHOLESTEROL 44 MG/DL (50-100); MAGNESIUM 1.9 MG/DL (1.5-2.4); TRIGLYCERIDES 83 MG/DL (20-135)
[2018-06-01 06:00] VITALS: BP 108/60
[2018-06-01] MEDS ORDERED: triamcinolone acet 0.1% cream 15gm TP PRN (08:00)
[2018-06-01] MEDS: K and/or MAG REPLACEMENT MC SCH (08:00)
[2018-06-01] MEDS ORDERED: oxcarbazepine 150mg tablet PO SCH (08:00)
[2018-06-01 10:22] VITALS: BP 144/71
[2018-06-01] MEDS: levoTHYROXINE 112mcg tablet PO SCH (10:51)
[2018-06-01] MEDS: pantoprazole 40mg Tablet.DR PO SCH (10:52)
[2018-06-01] MEDS: apixaban 5mg tablet PO SCH ×2 (10:53→20:20)
[2018-06-01] MEDS: carvedilol 6.25mg tablet PO SCH ×2 (10:53→20:20)
[2018-06-01] MEDS: OMEGA-3/DHA/EPA/FISH OIL 1 EACH CAPSULE.DR PO SCH ×2 (10:55→20:22)
[2018-06-01] MEDS: diltiazem CD 180mg cap (once-daily) PO SCH (10:56)
[2018-06-01] MEDS: oxcarbazepine 150mg tablet PO SCH ×2 (10:59→20:23)
[2018-06-01] MEDS: potassium Cl 20 mEq SR tablet PO SCH ×2 (11:01→20:23)
[2018-06-01] MEDS: insulin Lispro (HumaLOG) vial - multi-dose SQ SCH ×3 (11:06→18:55)
[2018-06-01] MEDS: acetaminophen 325mg tablet PO PRN (11:07)
[2018-06-01] MEDS ORDERED: traMADol 50MG tablet PO PRN ×2 (12:55→13:35)
[2018-06-01 18:00] VITALS: BP 122/58
[2018-06-01] MEDS: furosemide 40mg tablet PO SCH (18:57)
[2018-06-01 19:24] LABS: CLARITY,URINE CLOUDY (Clear); COLOR,URINE YELLOW (Yellow); GLUCOSE, URINE NEGATIVE (Neg); KETONES,URINE NEGATIVE (Neg); LEUKOCYTE ESTERASE ,URINE MODERATE (Neg); NITRITES, URINE POSITIVE (Neg); OCCULT BLOOD,URINE MODERATE (Neg); PH,URINE 5.5 (4.8-8.0); PROTEIN,URINE TRACE mg/dl (Neg); UROBILINOGEN,URINE 0.2 E.U/dL (0.2-1.0)
[2018-06-01 19:30] LABS: UA COLLECTION TYPE CLN CATCH MIDSTREAM
[2018-06-01 19:31] LABS: WBC,URINE TNTC /HPF (0-4)
[2018-06-01 19:32] LABS: BACTERIA,URINE 4+ /HPF (Neg); MUCUS STRANDS MANY /LPF (Neg); SQUAMOUS EPITHELIAL CELL,UR FEW /LPF (FEW); WBC CLUMPS,URINE MANY /HPF (NEGATIVE)
[2018-06-01] MEDS ORDERED: CefTRIAXone/D5W-Rocephin 1gm 50 ML IV ONE (19:55)
[2018-06-01] MEDS ORDERED: acetaminophen 325mg tablet PO PRN (19:55)
[2018-06-01] MEDS ORDERED: atorvastatin 20mg tablet PO SCH (21:00)
[2018-06-01] MEDS ORDERED: insulin glargine (Lantus) pen - multi-dose SQ SCH (21:00)
[2018-06-01 22:00] VITALS: BP 124/58
[2018-06-01 23:16] LABS: OCCULT BLOOD STOOL NEGATIVE (Neg)
[2018-06-02 02:00] VITALS: BP 125/67
[2018-06-02 06:00] VITALS: BP 132/69
[2018-06-02] MEDS: apixaban 5mg tablet PO SCH (07:35)
[2018-06-02] MEDS: oxcarbazepine 150mg tablet PO SCH (07:35)
[2018-06-02] MEDS: levoTHYROXINE 112mcg tablet PO SCH (07:35)
[2018-06-02] MEDS: OMEGA-3/DHA/EPA/FISH OIL 1 EACH CAPSULE.DR PO SCH (07:35)
[2018-06-02] MEDS: pantoprazole 40mg Tablet.DR PO SCH (07:35)
[2018-06-02] MEDS: potassium Cl 20 mEq SR tablet PO SCH (07:35)
[2018-06-02] MEDS: diltiazem CD 180mg cap (once-daily) PO SCH (07:49)
[2018-06-02] MEDS: carvedilol 6.25mg tablet PO SCH (07:49)
[2018-06-02] MEDS: furosemide 40mg tablet PO SCH (07:50)
[2018-06-02] MEDS: K and/or MAG REPLACEMENT MC SCH (08:00)
[2018-06-02 09:21] LABS: BASOPHILS % (AUTO) 0.1 % (0-1); EOSINOPHILS # (AUTO) 0.1 X10'3 (0-0.9); EOSINOPHILS % (AUTO) 0.8 % (0-6); HEMATOCRIT 26.9 % (42.0-52.0); HEMOGLOBIN 8.8 g/dl (14.0-17.9); LYMPHOCYTES # (AUTO) 0.8 X10'3 (1.1-4.8); MEAN CORPUSCULAR HGB CONC 32.9 % (33.0-36.5); MEAN CORPUSCULAR VOLUME 91.1 FL (78-98); MEAN PLATELET VOLUME 7.2 FL (7.4-10.4); MONOCYTES # (AUTO) 0.6 X10'3 (0-0.9); MONOCYTES % (AUTO) 3.6 % (2-12); NEUTROPHILS # (AUTO) 15.1 X10'3 (1.8-7.7); NEUTROPHILS % (AUTO) 90.5 % (42-75); PLATELET COUNT 195 X10'3 (140-440); RED BLOOD COUNT 2.95 X10'6 (4.70-6.10); RED CELL DISTRIBUTION WIDTH 15.1 % (11.5-14.5); WHITE BLOOD COUNT 16.6 X10'3 (4.5-11.0)
[2018-06-02] MEDS: insulin Lispro (HumaLOG) vial - multi-dose SQ SCH ×2 (09:36→13:44)
[2018-06-02 09:39] LABS: ALANINE AMINOTRANSFERASE 38 U/L (12-78); ALBUMIN/GLOBULIN RATIO 0.5 (1.1-1.5); ALKALINE PHOSPHATASE 87 IU/L (46-116); ANION GAP 10 (8-16); ASPARTATE AMINO TRANSFERASE 29 U/L (10-37); BILIRUBIN,TOTAL 0.9 MG/DL (0.1-1.0); BLOOD UREA NITROGEN 29 MG/DL (7-18); BUN/CREATININE RATIO 15.2 (5.4-32.0); CALCIUM 9.1 MG/DL (8.5-10.1); CHLORIDE 104 MMOL/L (99-107); CREATININE 1.91 MG/DL (0.60-1.10); GLUCOSE 239 MG/DL (70-104); MAGNESIUM 1.9 MG/DL (1.5-2.4); POTASSIUM 4.5 MMOL/L (3.5-5.1); SODIUM 138 MMOL/L (135-145); TOTAL CARBON DIOXIDE 24.1 MMOL/L (24-32); TOTAL PROTEIN 5.7 G/DL (6.4-8.2); eGFR 34 ML/MIN
[2018-06-02 10:00] VITALS: BP 95/58
[2018-06-02] MEDS: acetaminophen 325mg tablet PO PRN (13:28)
[2018-06-02] MEDS ORDERED: lactobacillus rhamnosus 10,000 MMU CELLS/CAPSULE PO SCH (20:00)
[2018-06-02] MEDS ORDERED: CefTRIAXone/D5W-Rocephin 1gm 50 ML IV SCH (21:00)
== END 2018-06-02 16:35 | DRG 91 ==
LOC: ER 19:09 → ED HOLD 23:27 → ORTHO 4S 06-01 00:15
PROVIDERS: ADMIT Family Medicine; ATTEND Internal Medicine
PROC: 5A09357 Assistance with Respiratory Ventilation, Less than 24 Consecutive Hours, Continuous Positive Airway Pressure (ICD-10-PCS; principal; 2018-06-01)
PROC: 5A09357 Assistance with Respiratory Ventilation, Less than 24 Consecutive Hours, Continuous Positive Airway Pressure (ICD-10-PCS; 2018-06-02)
DX: G92 Toxic encephalopathy (principal); E43 Unspecified severe protein-calorie malnutrition; N17.9 Acute kidney failure, unspecified; I50.30 Unspecified diastolic (congestive) heart failure; D62 Acute posthemorrhagic anemia; N39.0 Urinary tract infection, site not specified; K92.2 Gastrointestinal hemorrhage, unspecified; Z68.42 Body mass index [BMI] 45.0-49.9, adult; I13.0 Hypertensive heart and chronic kidney disease with heart failure and stage 1 through stage 4 chronic kidney disease, or unspecified chronic kidney disease; E03.9 Hypothyroidism, unspecified; I27.81 Cor pulmonale (chronic); E66.01 Morbid (severe) obesity due to excess calories; E11.22 Type 2 diabetes mellitus with diabetic chronic kidney disease; N18.3 Chronic kidney disease, stage 3 (moderate); E78.5 Hyperlipidemia, unspecified; G47.33 Obstructive sleep apnea (adult) (pediatric); B96.20 Unspecified Escherichia coli [E. coli] as the cause of diseases classified elsewhere; I48.0 Paroxysmal atrial fibrillation; J44.9 Chronic obstructive pulmonary disease, unspecified; R79.1 Abnormal coagulation profile; Z99.81 Dependence on supplemental oxygen; Z98.42 Cataract extraction status, left eye; Z98.41 Cataract extraction status, right eye; Z88.0 Allergy status to penicillin; Z79.01 Long term (current) use of anticoagulants; Z79.899 Other long term (current) drug therapy; Z79.4 Long term (current) use of insulin; Z87.891 Personal history of nicotine dependence; Z86.73 Personal history of transient ischemic attack (TIA), and cerebral infarction without residual deficits; Z82.3 Family history of stroke
CPT/HCPCS: 36415; 36600; 70450; 71045; 71250; 80053; 80061; 81001; 82272; 82803; 82948; 83605; 83735; 83880; 84443; 84484; 85018; 85025; 85379; 85610; 85730; 87040; 87070; 87077; 87088; 87186; 93005; 93880; 94760; 97161; 97530; 99291; J0696; J1815; J7030

== ENCOUNTER 2018-06-12 16:20 | Emergency (ER) | payer MEDICARE, OTHER ==
[~2018-06-12] VITALS: Ht 185.4 cm; Wt 155.9 kg
[~2018-06-12 16:20] MED LIST changes: +CARV-50 PO; -CARV3.122 PO; -HYDR28CR14 TOP; -INSU100I29 SQ; +INSU200I4; +OMEP20CA10 PO; -OMEP20TA5 PO
[2018-06-12 16:21] VITALS: BP 150/84
[2018-06-12] MEDS ORDERED: normal saline 1000ML IV soln IVB ONE (16:35)
[2018-06-12] MEDS ORDERED: naloxone 2mg/2ml inj IV ONE (16:35)
[2018-06-12 17:06] LABS: ABG BASE EXCESS 8.2 mmol/L (-2.0-3.0); ABG HCO3 32.3 mmol/L (22.0-26.0); ABG PCO2 (T) 42.9 mmHg (35.0-48.0); ABG PH (T) 7.495 (7.350-7.450); ABG PO2 (T) 77.1 mmHg (83-108); ALLEN'S TEST Positive; FCOHb 0.7 % (0.5-1.5); FMetHb 0.1 % (0.3-1.12); FO2Hb 95.2 % (94-100); TOTAL HEMOGLOBIN 11.5 G/dl (14.0-18.0)
[2018-06-12 17:18] LABS: BASOPHILS % (AUTO) 0 % (0-1); EOSINOPHILS # (AUTO) 0.1 X10'3 (0-0.9); EOSINOPHILS % (AUTO) 0.9 % (0-6); HEMATOCRIT 33.9 % (42.0-52.0); HEMOGLOBIN 10.9 g/dl (14.0-17.9); LYMPHOCYTES # (AUTO) 0.8 X10'3 (1.1-4.8); LYMPHOCYTES % (AUTO) 8.3 % (21-51); MEAN CORPUSCULAR HEMOGLOBIN 29.4 PG (27.0-31.0); MEAN CORPUSCULAR HGB CONC 32.3 % (33.0-36.5); MEAN CORPUSCULAR VOLUME 91.3 FL (78-98); MEAN PLATELET VOLUME 7.2 FL (7.4-10.4); MONOCYTES # (AUTO) 0.3 X10'3 (0-0.9); MONOCYTES % (AUTO) 2.5 % (2-12); NEUTROPHILS % (AUTO) 88.3 % (42-75); PLATELET COUNT 339 X10'3 (140-440); RED BLOOD COUNT 3.71 X10'6 (4.70-6.10); RED CELL DISTRIBUTION WIDTH 15.4 % (11.5-14.5); WHITE BLOOD COUNT 10.2 X10'3 (4.5-11.0)
[2018-06-12 17:30] LABS: INR 1.1 INR; PROTHROMBIN TIME 11.4 SECONDS (9.0-12.0)
[2018-06-12 17:31] LABS: ALANINE AMINOTRANSFERASE 53 U/L (12-78); ALBUMIN 2.8 G/DL (3.4-5.0); ALBUMIN/GLOBULIN RATIO 0.8 (1.1-1.5); ALKALINE PHOSPHATASE 177 IU/L (46-116); ANION GAP 5 (8-16); ASPARTATE AMINO TRANSFERASE 30 U/L (10-37); BILIRUBIN,TOTAL 0.8 MG/DL (0.1-1.0); BLOOD UREA NITROGEN 16 MG/DL (7-18); BUN/CREATININE RATIO 10.5 (5.4-32.0); CALCIUM 9.6 MG/DL (8.5-10.1); CHLORIDE 99 MMOL/L (99-107); CREATININE 1.52 MG/DL (0.60-1.10); GLUCOSE 255 MG/DL (70-104); POTASSIUM 3.6 MMOL/L (3.5-5.1); SODIUM 140 MMOL/L (135-145); TOTAL CARBON DIOXIDE 35.6 MMOL/L (24-32); TOTAL PROTEIN 6.5 G/DL (6.4-8.2); eGFR 45 ML/MIN
[2018-06-12 17:34] LABS: TROPONIN I < 0.04 NG/ML (0.0-0.05)
[2018-06-12] MEDS ORDERED: tranexamic acid 100mg/ml inj. IV ONE (17:50)
[2018-06-12] MEDS ORDERED: TRANEXAMIC ACID IV ONE (17:55)
[2018-06-12] MEDS ORDERED: NORMAL SALINE IV ONE (17:55)
[2018-06-12] MEDS ORDERED: phytonadione inj. 5 MG in normal saline 100ml IV soln 99.5 ML IV ONE (18:05)
[2018-06-12] MEDS ORDERED: HUM PROTHROMBIN CPLX(PCC)4FACT 1,000 UNIT VIAL IV ONE (18:15)
[2018-06-12 18:23] LABS: CLARITY,URINE CLEAR (Clear); COLOR,URINE YELLOW (Yellow); GLUCOSE, URINE 250 mg/dl (Neg); KETONES,URINE NEGATIVE (Neg); LEUKOCYTE ESTERASE ,URINE NEGATIVE (Neg); NITRITES, URINE NEGATIVE (Neg); OCCULT BLOOD,URINE TRACE-INTACT (Neg); PROTEIN,URINE NEGATIVE (Neg); UROBILINOGEN,URINE 0.2 E.U/dL (0.2-1.0)
[2018-06-12 18:24] LABS: UA COLLECTION TYPE FOLEY CATH
[2018-06-12 18:28] LABS: URINE AMPHETAMINE SCREEN NEGATIVE (Neg); URINE BARBITUATE SCREEN NEGATIVE (Neg); URINE BENZODIAZEPINES SCREEN NEGATIVE (Neg); URINE CANNABINOID SCREEN NEGATIVE (Neg); URINE COCAINE SCREEN NEGATIVE (Neg); URINE METHADONE SCREEN NEGATIVE (Neg); URINE OPIATE SCREEN NEGATIVE (Neg); URINE PHENCYCLIDINE SCREEN NEGATIVE (Neg)
[2018-06-12 18:34] LABS: MUCUS STRANDS FEW /LPF (Neg); SQUAMOUS EPITHELIAL CELL,UR FEW /LPF (FEW)
[2018-06-12 18:35] LABS: BACTERIA,URINE NONE SEEN /HPF (Neg); RBC,URINE 0-2 /HPF (0-2); WBC,URINE 0-4 /HPF (0-4)
== END 2018-06-12 18:25 | disposition short-term general hospital (02) ==
LOC: ER 16:20
DX: I62.9 Nontraumatic intracranial hemorrhage, unspecified (principal); I48.91 Unspecified atrial fibrillation; I10 Essential (primary) hypertension; E11.9 Type 2 diabetes mellitus without complications; Z86.73 Personal history of transient ischemic attack (TIA), and cerebral infarction without residual deficits; Z98.890 Other specified postprocedural states; Z88.0 Allergy status to penicillin; Z88.5 Allergy status to narcotic agent; Z79.899 Other long term (current) drug therapy; Z79.4 Long term (current) use of insulin; Z79.01 Long term (current) use of anticoagulants
CPT/HCPCS: 36415; 36600; 70450; 71045; 80053; 80305; 81001; 82803; 82948; 83605; 84484; 85018; 85025; 85610; 87040; 93005; 96361; 96374; 96375; 99291; 99292; C9132; J2310; 96365; J3430; J7030